=== PATIENT | female | born 1990 | race Caucasian/White ===

== ENCOUNTER 2021-12-09 08:14 | Emergency (ER) | payer BC, SELFPAY ==
[2021-12-09 08:40] VITALS: BP 127/80; PULSE 95; RESP 16; TEMP 37; O2SAT 99; BMI 22.1
--- NOTE | 2021-12-09 08:53 | HMH.EDUTC ---
[facility] [place] Disposition Clinical Impression: Otitis media Qualifiers: Otitis media type: unspecified Laterality: left Qualified Code(s): H66.92 - Otitis media, unspecified, left ear Disposition: Home, Self-Care Condition on Discharge: Good Instructions: Ear Infections (Alternative Therapy), Middle Ear Infection, Cefdinir Additional Instructions: *Monitor Temp, Over the counter Motrin or Tylenol as directed/as needed Tylenol every 4 hours and Motrin every 6 hours (as long as your family doctor has told you that you can take it) for fever or pain. and straight to ER if unable to lower temp less than 101.0 after medication given *Warm salt water gargles may help to soothe the throat *Throat Lozenges *Warm fluids like tea with honey may help to soothe the throat *Sleep elevated *Humidifier/Vaporizer *Flonase 2 sprays in each nostril daily but be aware that it may take 2-3 days before you notice improvement Take medication as prescribed Follow up IMMEDIATELY for new or worsening symptoms or no Noticeable improvement over the next 48-72 hours. 911 for difficulty breathing or swallowing Prescriptions: Cefdinir [Omnicef 300mg Capsule] 300 mg PO BID #20 cap Transmission Status: Pending to [facility] #[id number] Referrals: Srikanth Cosby MD [Primary Care Provider] - As needed Time of Disposition: 08:55 Medical Decision Making - Del Inquiry Pt receiving controlled substance: No Del was queried for this patient: No Vital Signs: 12/09/21 08:40 Temperature 98.6 F Temperature Source Oral Pulse Rate [Left] 95 H Respiratory Rate 16 Blood Pressure [Right Arm] 127/80 Blood Pressure Mean [Right Arm] 95 02 Sat by Pulse Oximetry 99 [facility] [place] HPI - General Stated complaint: ear pain, sinus congestion Time Seen by Provider: 12/09/21 08:50 Description of Symptoms (Recalled from Triage Doc. by RN): patient comes in for fluid on ears bilaterally, and sinus infection. symptoms began yesterday. HEENT Symptoms (Recalled from RN notes): Yes Resp Symptoms (Recalled from RN notes): No Skin Symptoms (Recalled from RN notes): No MS Symptoms (Recalled from RN notes): No Functional Status (Recalled from RN notes): n/a - History of Present Illness Provider Complaint: Patient states that she has been having pain in both ears more so in her left and pressure in her sinuses States that today her ear felt full and was hurting worse so she came in to get checked States that she had COVID in October - Related Data Previous Rx's Medication Instructions Recorded Cefdinir [Omnicef 300mg Capsule] 300 mg PO BID #20 cap 12/09/21 Allergies Allergy/AdvReac Type Severity Reaction Status Date / Time No Known Allergies Allergy Verified 04/24/21 11:31 - Worker's Comp Is this a Worker's Comp case?: No [facility] History - Hepatitis A Screen Attestation statement:: This patient has been screened for Hepatitis A risk factors. I have reviewed the patient's past medical history: Yes Other Surgeries: Yes: No Previous Surgery - Social History Smoking Status: Never smoker Alcohol Intake: never Occupational Status: employed Family Hx:: Non-contributory ROS Obtained: Yes All systems reviewed & no additional complaints, Yes Systems reviewed as appropriate & no additional complaints - Constitutional Constitutional: Reports system reviewed and no additional complaints, except as docu, Denies body ache, Denies chills, Denies fever(s) - ENT Ears, Nose, Mouth, and Throat: Reports system reviewed and no additional complaints, except as docu, Reports otalgia, Reports sinus pain, Reports sinus pressure - Cardiovascular Cardiovascular: Reports system reviewed and no additional complaints, except as docu - Respiratory Respiratory: Reports system reviewed and no additional complaints, except as docu - Gastrointestinal Gastrointestingal: Reports: system reviewed and no additional complaints, except as docu Physical Exam - General G
[2021-12-09 08:59] VITALS: BP 127/80; PULSE 95; RESP 16; TEMP 37
== END 2021-12-09 09:03 | disposition home or self-care (01) ==
PROVIDERS: Emergency Provider Nurse Practitioner; PCP Family Medicine
DX: H66.92 Otitis media, unspecified, left ear (principal)
CPT/HCPCS: 99212; G0463

== ENCOUNTER 2022-08-16 08:40 | Emergency (ER) | payer BC, SELFPAY ==
[2022-08-16 08:40] VITALS: BP 111/77; PULSE 89; RESP 22; TEMP 36.7; O2SAT 99; BMI 23.6
--- NOTE | 2022-08-16 09:25 | EXP.UTC ---
Discharge Plan Disposition Patient Disposition: Home, Self-Care Condition: Good Prescriptions Prescriptions: New azithromycin [azithromycin] 250 mg tablet 250 mg PO DIRECTED Qty: 6 0RF Rx Instructions: Take two (2) tablets on day #1, then one (1) tablet day #2 thru #5 fluticasone propionate [fluticasone propionate] 50 mcg/actuation spray,suspension 1 spray intranasal DAILY Qty: 9.9 0RF Referrals Follow up/Referrals: Srikanth Cosby MD [Primary Care Provider] - See instructions Activity Restrictions/Add. Instructions Additional Instructions/Restrictions: Start antibiotic patient to take as ordered for a full length of time even if you feel better. Sinus infections do not get better overnight. It may take 2-3 days to notice much improvement so be sure to use conservative measures as discussed for symptoms. Flonase 1 spray each nostril daily to help with nasal congestion, sinus and ear pressure/information Increase fluids Humidifier/vaporizer as needed Tylenol and ibuprofen as needed for fever or pain. If symptoms do not improve or get worse return or be seen in the ER Follow-up with primary care this week Clinical Impressions Clinical Impression: Acute maxillary sinusitis Instructions Patient Instructions: DI for Sinusitis Discharge ED Provider: [place] ([facility] [place] HPI General Stated complaint: Sinus pain/inflammation Mode of Arrival: Ambulatory Source of Information: Patient Limitations: No Limitations Time Seen by Provider: 08/16/22 09:25 Description of Symptoms (Recalled from Triage Doc. by RN): PATIENT C/O SINUS PRESSURE X 2 DAYS HEENT Symptoms (Recalled from RN notes): Yes Resp Symptoms (Recalled from RN notes): No Skin Symptoms (Recalled from RN notes): No MS Symptoms (Recalled from RN notes): No Functional Status (Recalled from RN notes): WNL History of Present Illness Provider Complaint: 32 yr old female presents for sinus pressure, sinus congestion, sinus pain, and thick yellow congestion for 2-3 days Related Data Previous Rx's Medication Instructions Recorded azithromycin 250 mg tablet 250 mg PO DIRECTED #6 tabs 08/16/22 fluticasone propionate 50 1 spray intranasal DAILY #9.9 mL 08/16/22 mcg/actuation nasal spray,suspension Allergies Allergy/AdvReac Type Severity Reaction Status Date / Time No Known Allergies Allergy Verified 04/24/21 11:31 Worker's Comp Is this a Worker's Comp case?: No [facility] Disclaimer: The information contained in this section may have been updated after the patient was seen, as this information can be updated by other users. Social History , [employer]) Smoking Status: Never smoker alcohol intake: never current occupational status: employed Travel in the last 8 weeks: None ROS Obtained: Yes All systems reviewed & no additional complaints except as documented Constitutional Constitutional: Reports system reviewed and no additional complaints, except as documented and Reports as per HPI Eyes Eyes: Reports system reviewed and no additional complaints, except as documented and Reports as per HPI ENT Ears, Nose, Mouth, and Throat: Reports system reviewed and no additional complaints, except as documented, Reports as per HPI, Reports nasal congestion, Reports nasal discharge, Reports post nasal drip, Reports sinus pain and Reports sinus pressure Cardiovascular Cardiovascular: Reports system reviewed and no additional complaints, except as documented Respiratory Respiratory: Reports system reviewed and no additional complaints, except as documented Gastrointestinal Gastrointestingal: Reports system reviewed and no additional complaints, except as documented Musculoskeletal Musculoskeletal: Reports system reviewed and no additional complaints, except as documented Integumentary/Breasts Skin/Breast: Reports system reviewed and no additional complaints, except as documented Neuro
[2022-08-16 09:37] VITALS: BP 111/77; PULSE 89; RESP 22; TEMP 36.7; O2SAT 99
== END 2022-08-16 09:40 | disposition home or self-care (01) ==
PROVIDERS: Emergency Provider Nurse Practitioner Family; PCP Family Medicine
DX: J01.00 Acute maxillary sinusitis, unspecified (principal)
CPT/HCPCS: 99212; 99214; G0463

== ENCOUNTER 2024-02-09 16:48 | Outpatient (CLI) | payer BC, SELFPAY | END 2024-02-09 23:59 | disposition home or self-care (01) | LOC: LAB.DROPOF 16:49 | PROVIDERS: PCP Nurse Practitioner; Visit Provider Nurse Practitioner | DX: L60.0 Ingrowing nail (principal) | CPT/HCPCS: 87102; 87206; 87220 ==

== ENCOUNTER 2024-09-03 11:16 | Emergency (ER) | payer BC, SELFPAY ==
[2024-09-03 11:31] VITALS: BP 150/87; PULSE 107; RESP 20; TEMP 36.7; O2SAT 100; BMI 29.7
[2024-09-03 11:40] VITALS: BP 115/83; PULSE 108; RESP 18; O2SAT 98
--- NOTE | 2024-09-03 11:51 | ED_ITS ---
Discharge Plan Disposition Patient Disposition: Home, Self-Care Condition: Good Prescriptions Prescriptions: No Action cefuroxime axetil 500 mg tablet 500 mg PO BID 7 Days Qty: 14 0RF doxycycline hyclate 100 mg tablet 100 mg PO BID 7 Days Qty: 14 0RF Referrals Follow up/Referrals: Srikanth Cosby MD [Primary Care Provider] - See instructions Activity Restrictions/Add. Instructions Additional Instructions/Restrictions: You were evaluated in the emergency department today. Ultrasound is negative for any blood clots. Your magnesium is slightly low. Please follow-up very closely with primary care as well as with your radioisotope technologist. Make sure you stay hydrated. Return to the emergency department for new or worsening symptoms. Clinical Impressions Clinical Impression: Bilateral leg cramps, Hypomagnesemia Stand Alone Forms Stand Alone Forms: Work/School Release Instructions Patient Instructions: DI for Muscle Strain, DI for Nocturnal Leg Cramps Print Language Print Language: R[place] Discharge ED Provider: Mylene Harrell General Adult HPI General Chief complaint: Extremity Injury, Lower Stated complaint: Pain in L leg Time Seen by Provider: 09/03/24 11:30 Mode of Arrival: Ambulatory Source of Information: Patient Description of Symptoms (Recalled from ER Triage Doc. by RN): pt is 31 weeks and has been having bad muscle spasms in her calf, she had one thursday/ thursday night and her left calf is still sore and ob wants checked for dvt. pt is alox4 and appropriate upon triage History of Present Illness HPI narrative: This patient is a 34-year-old female 31 weeks presenting to the emergency department for evaluation concern for leg pain/cramping. Patient reports that she has had intermittent charley horse cramps in her calves, last 1 being in her left leg Thursday night. She notes that she has had persistent left leg soreness since then, which she attributes to the cramp. She notified her OB and was told to come to the ED for rule out of DVT and to check for blood flow to her legs. She denies any other concerns or complaints. No history of blood clots or clotting disorders. No chest pain or shortness of breath, no lightheadedness or syncope. Related Data Previous Rx's ?Medication ?Instructions ?Recorded cefuroxime axetil 500 mg tablet 500 mg PO BID 7 days #14 tabs 01/18/24 doxycycline hyclate 100 mg tablet 100 mg PO BID 7 days #14 tabs 01/18/24 Allergies Allergy/AdvReac Type Severity Reaction Status Date / Time No Known Allergies Allergy Verified 02/09/24 08:48 [facility] Disclaimer: The information contained in this section may have been updated after the patient was seen, as this information can be updated by other users. Medical History Cellulitis Otitis media Acute maxillary sinusitis Surgical History No significant past surgical history Family History Other No significant family history Social History Smoking Status: Never smoker alcohol intake: never current occupational status: employed Travel in the last 8 weeks: None Have you lived/traveled outside [place] in past 30 days?: No Contact w/someone who lives/traveled outside [place] past 30 days?: No Exposure to someone with infectious disease in past 14 days?: No Do you have a fever (greater than 100.4 F or 38 C)?: No Have you tested positive for COVID-19: No Exposed to someone with COVID-19 in past 14 days?: No Do you have a sore throat?: No Do you have a cough?: No Do you have any weakness?: No Do you have any diarrhea?: No Are you experiencing any unusual bleeding?: No Do you have any muscle aches/pain?: No Do you have any abdominal pain?: No Are you experiencing loss of taste or smell?: No Other Medical History Have you received the Pneumonia Vaccine: No ROS Obtained: Yes All systems reviewed & no additional complaints except as documented Physical Exam General General appearance: alert and in no apparent distress Head Head exam: atraumatic and normocephalic Eye Eye exam: Present normal appearance, PERRL and EOMI ENT ENT exam: Present normal exam, normal oropharynx, mucous membranes moist and normal external ear exam Neck Neck exam: Present normal inspection, full ROM and trachea midline; Absent tenderness Chest Chest inspection: Present normal inspection and symmetric chest wall rise; Absent tenderness Respiratory Respiratory exam: Present normal lung sounds bilaterally; Absent respiratory distress, wheezes, stridor or accessory muscle use Cardiovascular Cardiovascular exam: Present regular rate and normal rhythm Abdominal Exam Abdominal exam: Present soft; Absent distention, tenderness or guarding Extremities Exam Extremities exam: Present normal inspection, full ROM and normal capillary refill; Absent tenderness or edema Back Exam Back exam: Present normal inspection and full ROM; Absent tenderness Neurological Exam Neurological exam: Present alert, oriented X3, CN II-XII intact and normal gait; Absent motor sensory deficit Psychiatric Psychiatric exam: Present normal affect and normal mood Skin Skin exam: Present warm and dry Medical Decision Making Medical Records Medical records reviewed: Yes I reviewed the patient's medical records. Screening: Per USPSTF and CDC recommendations, given the prevalence of disease in our region, it is our hospital?s policy to screen for HIV and viral Hepatitis for all patients aged 18 and over and those with ongoing risk factors. Del Inquiry Pt receiving controlled substance: No Vital Signs: 09/03/24 11:31 09/03/24 11:40 09/03/24 12:35 Temperature 98.0 F Temperature Source Oral Pulse Rate 108 H 99 H Pulse Rate [Left Radial] 107 H Respiratory Rate 20 18 Blood Pressure 115/83 110/78 Blood Pressure [Right Arm] 150/87 H Blood Pressure Mean 89 Blood Pressure Mean [Right Arm] 108 Blood Pressure Source Blood Pressure Position 02 Sat by Pulse Oximetry 100 98 97 Oxygen Delivery Method Room Air Room Air 09/03/24 13:30 Temperature 98.0 F Temperature Source Pulse Rate 90 Pulse Rate [Left Radial] Respiratory Rate 18 Blood Pressure 112/76 Blood Pressure [Right Arm] Blood Pressure Mean Blood Pressure Mean [Right Arm] Blood Pressure Source Automatic Cuff Blood Pressure Position Sitting 02 Sat by Pulse Oximetry Oxygen Delivery Method Room Air Lab Data Lab results reviewed: Yes I reviewed the patient's lab results. Lab Results 09/03/24 11:57: WBC 13.9 H, RBC 3.97 L, Hgb 11.0 L, Hct 32.8 L, MCV 82.6, MCH 27.7, MCHC 33.5, RDW 13.3, Plt Count 263, MPV 9.4, Neut % (Auto) 65.0, Lymph % (Auto) 18.4, [place] % (Auto) 9.7 H, Eos % (Auto) 1.6, Baso % (Auto) 0.6, Neut # (Auto) 9.0 H, Lymph # (Auto) 2.6, [place] # (Auto) 1.3 H, Eos # (Auto) 0.2, Baso # (Auto) 0.1, D-Dimer 1.38 H, Sodium 135 L, Potassium 3.7, Chloride 106, Carbon Dioxide 22, Anion Gap 10.7, BUN 5 L, Creatinine 0.50 L, Estimated Creat Clear 200, Estimated GFR 143, Est GFR ( Amer) 173, Glucose 77, Calcium 9.9, M agnesium 1.5 L, Total Bilirubin 1.1, AST 29, ALT 13, Alkaline Phosphatase 84, Total Protein 6.5, Albumin 3.2 L, Globulin 3.3 H, Albumin/Globulin Ratio 1.0 L 09/03/24 11:57 09/03/24 11:57 Orders (Tests/Meds): ED MEDICATIONS Discontinued Medications Generic Name Dose Route Start Last Admin Trade Name Freq PRN Reason Stop Dose Admin Magnesium Oxide 400 mg 09/03/24 12:30 09/03/24 12:44 Magnesium Oxide 400mg Tablet PO 09/03/24 12:31 400 mg ONCE ONE Administration ORDERS Category Date Time Status Complete Blood Count Auto Diff Stat Lab 09/03/24 11:57 Completed Comprehensive Metabolic Panel Stat Lab 09/03/24 11:57 Completed D-Dimer Stat Lab 09/03/24 11:57 Completed MAG [Magnesium] Stat Lab 09/03/24 11:57 Completed CA venous doppler LE BI Stat Y 09/03/24 12:29 Completed Medical Decision Narrative: In summary, this patient is a 34-year-old female presenting to the Emergency Department for evaluation of bilateral leg cramps, with persistent left calf soreness after a charley horse cramp that happened on Thursday. Differential diagnoses considered include but are not limited to electrolyte derangements, soreness from leg cramps, musculoskeletal strain/sprain, DVT, vascular insufficiency. Ruling out the most morbid conditions drove assessment. On exam, the patient is well-appearing. She is lying in bed in no acute distress. No chest pain, shortness of breath, tachycardia, or hypoxia noted on cardiac telemetry. Lower extremity exam is reassuring. Workup included CBC, CMP, magnesium, D-dimer. D-dimer was elevated. Labs demonstrated mild leukocytosis in the setting of which is not clinically significant. She also has very mild anemia in the setting of , also not clinically significant. Chemistry is reassuring with normal kidney function, normal liver enzymes. She has mild hypomagnesemia, for which oral replacement was ordered. I obtained bilateral lower extremity DVT ultrasound given her bilateral lower leg pain and elevated D-dimer, which was negative for DVT on my independent interpretation. Please radiology read for final interpretation. Ultimately at this time I feel patient likely has muscle cramping and is appropriate for discharge with close outpatient follow-up. Strict return precautions were given. Critical Care Critical Care Time Critical Care Time: No
[2024-09-03 12:14] LABS: Basophils # 0.1 K/mm3 (0-0.2); Basophils % 0.6 % (0.1-2.0); Eosinophils # 0.2 K/mm3 (0.0-0.4); Eosinophils % 1.6 % (0.1-12.0); Hematocrit 32.8 % (37.0-47.0); Lymphocytes # 2.6 K/mm3 (0.7-4.5); Lymphocytes % 18.4 % (10-50); Mean Corpuscular HGB Conc 33.5 g/dL (31.8-35.4); Mean Corpuscular Hemoglobin 27.7 pg (27.0-31.2); Mean Corpuscular Volume 82.6 fl (81-99); Mean Platelet Volume 9.4 fl (7.4-10.4); Monocytes # 1.3 K/mm3 (0.1-1.0); Monocytes % 9.7 % (1.7-9.3); Platelet Count 263 K/mm3 (142-424); Red Blood Count 3.97 M/mm3 (4.20-5.40); Red Cell Distribution Width 13.3 % (11.5-17.5); White Blood Count 13.9 K/mm3 (4.8-10.8)
[2024-09-03 12:25] LABS: Alanine Aminotransferase 13 U/L (12-78); Albumin Level 3.2 g/dl (3.5-5.0); Alkaline Phosphatase 84 U/L (38-126); Anion Gap 10.7 mEq/L (5-15); Aspartate Amino Transferase 29 U/L (14-36); Bilirubin,Total 1.1 mg/dl (0.2-1.3); Blood Urea Nitrogen 5 mg/dl (7-17); Calcium 9.9 mg/dl (8.4-10.2); Carbon Dioxide 22 mmol/L (22.0-30.0); Chloride 106 mmol/L (98-107); Creatinine Clearance Estimated 200 mL/min (50-200); Estimated Glomerular Filt Rate 143 ml/min (>60); GFR (African American) 173 ML/MIN (>60); Globulin 3.3 g/dL (1.3-3.2); Glucose 77 mg/dl (74-100); Magnesium 1.5 mg/dl (1.6-2.3); Potassium 3.7 mmoL/L (3.5-5.1); Sodium 135 mmol/L (136-145); Total Protein,Serum 6.5 g/dl (6.3-8.2)
[2024-09-03 12:29] LABS: D-Dimer 1.38 ug/mL (0.0-0.5)
--- NOTE | 2024-09-03 12:29 | CA_ITS ---
FINAL REPORT TECHNIQUE: Bilateral lower extremity venous duplex was performed with augmentation and compression. CLINICAL HISTORY: Cramping in left leg. Patient states she has been having charley horses in bilateral lower extremities x several weeks. She is currently 31 weeks . No history of DVT or clotting disorders noted. FINDINGS: Proper flow is seen throughout the deep venous systems bilaterally. There is no evidence of deep venous thrombosis. IMPRESSION: No evidence of deep venous thrombosis. Reviewed, Interpreted and Dictated by Guillermo Patel MD Transcribed by Geri Horowitz Authenticated and [facility]
[2024-09-03 12:35] VITALS: BP 110/78; PULSE 99; O2SAT 97
[2024-09-03] MEDS: MAGNESIUM OXIDE 400MG TABLET 400 MG PO (12:44)
--- NOTE | 2024-09-03 12:54 | PC.NURSE ---
VASCULAR AT BEDSIDE
[2024-09-03 13:30] VITALS: BP 112/76; PULSE 90; RESP 18; TEMP 36.7; O2SAT 98
== END 2024-09-03 13:30 | disposition home or self-care (01) ==
PROVIDERS: Emergency Provider Emergency Medicine; PCP Family Medicine
DX: R25.2 Cramp and spasm (principal); E83.42 Hypomagnesemia
CPT/HCPCS: 80053; 83735; 85025; 85378; 93970; 99283

== ENCOUNTER 2024-10-04 12:31 | Outpatient (CLI) | payer BC, SELFPAY ==
[2024-10-04 15:18] LABS: Coronavirus 19, PCR Not Detected (NotDetected); Influenza A, PCR Not Detected (NotDetected); Influenza B, PCR Not Detected (NotDetected)
== END 2024-10-04 23:59 | disposition home or self-care (01) ==
LOC: LAB.DROPOF 10-05 12:13
PROVIDERS: PCP Student in an Organized Health Care Education/Training Program; Visit Provider Student in an Organized Health Care Education/Training Program
DX: R50.9 Fever, unspecified (principal)
CPT/HCPCS: 87636